=== PATIENT | female | born 1990 | race Caucasian/White ===

== ENCOUNTER 2017-05-22 08:19 | Inpatient (IN) | payer OTHER ==
[~2017-05-22] VITALS: Ht 170.2 cm; Wt 66.0 kg
[2017-05-22] MEDS: D5%-LACTATED RINGERS 1,000 ML IV SCH (21:38)
[2017-05-22] MEDS ORDERED: OXYTOCIN 30U/ 0.9% NaCL 500ML 500 ML IV ONE (21:38)
[2017-05-22] MEDS ORDERED: FENTANYL PF 100 MCG/2ML IVPush PRN (22:00)
[2017-05-22] MEDS ORDERED: SODIUM CITRATE/CITRIC ACID 30 ML UDC PO PRN (22:00)
[2017-05-22] MEDS ORDERED: ONDANSETRON 2MG/ML, 2ML IVPush PRN (22:00)
[2017-05-22] MEDS ORDERED: METOCLOPRAMIDE 5 MG/ML, 2ML IVPush PRN (22:00)
[2017-05-22] MEDS ORDERED: PLEASE ENTER HEIGHT AND WEIGHT MC SCH (22:00)
[2017-05-22] MEDS: PLEASE ENTER ALLERGIES MC SCH ×2 (22:00)
[2017-05-22] MEDS ORDERED: MISOPROSTOL 25 MCG TABLET VG PRN (22:00)
[2017-05-22] MEDS ORDERED: TERBUTALINE 1 MG/ML, 1ML IVPush PRN (22:00)
[2017-05-22] MEDS ORDERED: PENICILLIN GK 5,000,000 UNITS in DEXTROSE 5% 100 ML IVPB ONE (22:00)
[2017-05-22] MEDS ORDERED: FENTANYL PF 100 MCG/2ML IV PRN (22:00)
[2017-05-22] MEDS ORDERED: TERBUTALINE 1 MG/ML, 1ML SQ PRN (22:00)
[2017-05-22] MEDS: LACTATED RINGERS 1,000 ML IV SCH (22:12)
[2017-05-22] MEDS ORDERED: MISOPROSTOL 25 MCG TABLET ONE (22:26)
[2017-05-23] MEDS ORDERED: NEWBORN KIT ONE (00:20)
[2017-05-23] MEDS: PENICILLIN GK 2,500,000 UNITS in DEXTROSE 5% 100 ML IVPB SCH ×5 (02:30→14:30)
[2017-05-23] MEDS: LACTATED RINGERS 1,000 ML IV SCH ×2 (04:59→09:30)
[2017-05-23] MEDS: D5%-LACTATED RINGERS 1,000 ML IV SCH ×2 (05:38→10:46)
[2017-05-23] MEDS: PLEASE ENTER ALLERGIES MC SCH ×4 (06:00→14:00)
[2017-05-23] MEDS ORDERED: FENTANYL PF 100 MCG/2ML ONE ×2 (09:20→09:25)
[2017-05-23] MEDS ORDERED: FENTANYL/BUPIV./NS/PF 250 ML EPIDCONT ONE ×2 (09:21→09:25)
[2017-05-23] MEDS ORDERED: BUPIVACAINE 0.25% ONE (09:21)
[2017-05-23] MEDS ORDERED: LIDOCAINE/PF 1.5%-EPI 1:200K, 30ML ONE (09:25)
[2017-05-23] MEDS ORDERED: OXYTOCIN 30U/ 0.9% NaCL 500ML 500 ML ONE (10:40)
[2017-05-23] MEDS ORDERED: OXYTOCIN 30U/ 0.9% NaCL 500ML 500 ML IV SCH (13:55)
[2017-05-23] MEDS ORDERED: CALCIUM CARBONATE 500 MG TAB.CHEW PO PRN (14:00)
[2017-05-23] MEDS ORDERED: OXYcodone IR 5MG TABLET PO PRN (14:00)
[2017-05-23] MEDS ORDERED: MAGNESIUM HYDROXIDE 8%, 30ML UDC PO PRN (14:00)
[2017-05-23] MEDS ORDERED: RHOGAM FROM BLOOD BANK 1 NOTE EA IM/IV ONE (14:00)
[2017-05-23] MEDS ORDERED: DIPH,PERTUSS(ACELL),TET VAC/PF NC IM-VACC PRN (14:00)
[2017-05-23] MEDS ORDERED: MEASLES,MUMPS&RUBELLA VACC/PF 0.5 ML SQ PRN (14:00)
[2017-05-23] MEDS ORDERED: MISOPROSTOL 200 MCG TABLET PR PRN (14:00)
[2017-05-23] MEDS ORDERED: ONDANSETRON 2MG/ML, 2ML IV PRN (14:00)
[2017-05-23] MEDS ORDERED: OXYcodone/APAP 5/325MG TABLET PO PRN (14:00)
[2017-05-23 16:00] VITALS: BP 116/71
[2017-05-23] MEDS: DOCUSATE 100 MG CAPSULE PO PRN (20:00)
[2017-05-23 20:15] VITALS: BP 106/71
[2017-05-24 01:02] VITALS: BP 98/66
[2017-05-24] MEDS: IBUPROFEN 600 MG TABLET PO PRN ×2 (02:58→09:06)
[2017-05-24 04:00] VITALS: BP 100/52
[2017-05-24 08:56] VITALS: BP 104/65
[2017-05-24] MEDS ORDERED: PRENATAL VIT/IRON/FA 1 EACH TABLET PO SCH (09:00)
[2017-05-24] MEDS: DOCUSATE 100 MG CAPSULE PO PRN (09:06)
[2017-05-24 12:05] VITALS: BP 108/73
[2017-05-24] MEDS ORDERED: IBUP-1222 PO (14:50)
[2017-05-24] MEDS ORDERED: DOCU-30 PO (14:51)
== END 2017-05-24 17:00 | disposition home or self-care (01) | DRG 775 ==
LOC: LDIP 21:05 → 2NW 05-23 15:51
PROVIDERS: ADMIT Obstetrics & Gynecology Gynecology; ATTEND Obstetrics & Gynecology Gynecology
PROC: 10E0XZZ Delivery of Products of Conception, External Approach (ICD-10-PCS; principal; 2017-05-23)
PROC: 0KQM0ZZ Repair Perineum Muscle, Open Approach (ICD-10-PCS; 2017-05-23)
PROC: 10907ZC Drainage of Amniotic Fluid, Therapeutic from Products of Conception, Via Natural or Artificial Opening (ICD-10-PCS; 2017-05-23)
PROC: 3E0P7GC Introduction of Other Therapeutic Substance into Female Reproductive, Via Natural or Artificial Opening (ICD-10-PCS; 2017-05-23)
PROC: 3E0R3CZ (ICD-10-PCS; 2017-05-23)
PROC: 00HU33Z Insertion of Infusion Device into Spinal Canal, Percutaneous Approach (ICD-10-PCS; 2017-05-23)
DX: O48.0 Post-term pregnancy (principal); O99.824 Streptococcus B carrier state complicating childbirth; Z3A.40 40 weeks gestation of pregnancy; O70.1 Second degree perineal laceration during delivery; Z37.0 Single live birth
CPT/HCPCS: 36415; 85025; 86850; 86900; J2540; J3010; J3490; J2590; J7120; J7121